=== PATIENT | male | born 1955 | race Caucasian/White ===

== ENCOUNTER 2018-07-24 20:26 | Emergency (ER) | payer MEDICAID ==
[~2018-07-24] VITALS: Ht 185.4 cm; Wt 127.0 kg
[2018-07-24 20:29] VITALS: BP 232/127
--- NOTE | 2018-07-24 20:41 | NUR ---
PT [facility] ALS. TAKEN TO BED 3
--- NOTE | 2018-07-24 20:58 | NUR ---
PATIENT WENT FOR X-RAY OF THE C-SPINE.
--- NOTE | 2018-07-24 21:21 | NUR ---
PT RETURN FROM XRAY
--- NOTE | 2018-07-24 21:21 | NUR ---
BACK FROM RADIOLOGY DEPARTMENT.
--- NOTE | 2018-07-24 21:36 | NUR ---
Dr. Bang evaluating patient at bedside.
[2018-07-24] MEDS ORDERED: KETOROLAC 30 MG/ML VIAL IM ONE (21:45)
--- NOTE | 2018-07-24 21:45 | NUR ---
WENT FOR X-RAY OF THE L-SPINE.
--- NOTE | 2018-07-24 22:03 | NUR ---
PT RETURN FROM XRAY
--- NOTE | 2018-07-24 22:12 | NUR ---
TORADOL 30 MG IM GIVEN ORDERED.
[2018-07-24] MEDS ORDERED: cloNIDine 0.1 MG TAB PO ONE (22:20)
--- NOTE | 2018-07-24 22:34 | NUR ---
HI=913/120. MD AWARE. CLONIDINE 0.1 MG PO GIVEN ORDERED.
[2018-07-24] MEDS ORDERED: hydrALAZINE 20 MG/ML VIAL IM ONE (23:15)
--- NOTE | 2018-07-24 23:25 | NUR ---
BP STILL 170/110. APRESOLINE 10 MG IM GIVEN ORDERED.
--- NOTE | 2018-07-24 23:54 | NUR ---
DISCHARGED STABLE AND IMPROVED. PRESCRIPTION,VERBAL AND WRITTEN AFTERCARE INSTRUCTIONS GIVEN. VERBALIZED UNDERSTANDING.
[2018-07-25 00:55] VITALS: BP 122/69
== END 2018-07-24 23:54 | disposition home or self-care (01) ==
LOC: MED 20:26
DX: M54.40 Lumbago with sciatica, unspecified side (principal); I10 Essential (primary) hypertension; V89.2XXA Person injured in unspecified motor-vehicle accident, traffic, initial encounter; Y93.89 Activity, other specified; Y92.488 Other paved roadways as the place of occurrence of the external cause; Y99.8 Other external cause status
CPT/HCPCS: 72040; 72100; 96372; 99283; J0360; J1885